=== PATIENT | male | born 1970 | race Caucasian/White ===

== ENCOUNTER 2019-05-08 11:56 | Day surgery (SDC) | payer OTHER ==
[~2019-05-08 11:56] MED LIST: HYDACE5 PO; OXYC5 PO
--- NOTE | 2019-05-08 12:40 | NUR ---
History, Chart, Medications and Allergies reviewed before start of procedure. Patient confirms NPO since 5 last night and agrees with scheduled surgery.
--- NOTE | 2019-05-08 14:13 | NUR ---
REPORT GIVEN TO LUCIA OBRIEN RN.
--- NOTE | 2019-05-08 14:13 | NUR ---
PATIENT STATES HE ONLY DID ONE CHLORHEXIDINE SHOWER AT HOME.
--- NOTE | 2019-05-08 18:48 | NUR ---
Patient up to Ambulate independently. Gait steady. Patient States Post-Procedure ride home has been arranged. Dressing to procedure site clean, dry, intact with no visible drainage, swelling, erythema or bruising noted. Discharge instructions reviewed with patient. Patient verbalizes understanding. Copy given to patient to take home. Discharged via wheelchair to private car for ride home.
== END 2019-05-08 22:53 | disposition home or self-care (01) ==
LOC: ORSCMMR 11:56 → ORD 14:00 → ORSCMMR 22:53
DX: K40.90 Unilateral inguinal hernia, without obstruction or gangrene, not specified as recurrent (principal)
CPT/HCPCS: 49650; S2900; C1781; J0690; J1100; J1885; J2250; J2405; J2704; J3010; J7120

== ENCOUNTER 2020-09-27 19:25 | Emergency (ER) | payer OTHER ==
[~2020-09-27] VITALS: Ht 182.9 cm; Wt 81.7 kg
== END 2020-09-28 00:19 | disposition home or self-care (01) ==
LOC: ER 19:25
DX: M54.9 Dorsalgia, unspecified (principal); Z87.891 Personal history of nicotine dependence; V49.40XA Driver injured in collision with unspecified motor vehicles in traffic accident, initial encounter
CPT/HCPCS: 72100; 99283-25

== ENCOUNTER 2025-04-02 19:29 | Emergency (ER) | payer SELFPAY ==
[~2025-04-02] VITALS: Ht 185.4 cm; Wt 79.4 kg
[~2025-04-02 19:29] MED LIST changes: +BACL10 PO
[2025-04-02 19:49] VITALS: BP 143/107
[2025-04-02] MEDS ORDERED: Ketorolac Tromethamine 30mg Vial IV ONE (20:10)
== END 2025-04-02 20:42 | disposition home or self-care (01) ==
LOC: ER 19:29
DX: K40.90 Unilateral inguinal hernia, without obstruction or gangrene, not specified as recurrent (principal); Z87.891 Personal history of nicotine dependence; Z79.899 Other long term (current) drug therapy
CPT/HCPCS: 99282